=== PATIENT | male | born 1980 | race Caucasian/White ===

== ENCOUNTER 2017-09-04 13:13 | Emergency (ER) | payer MEDICAID ==
[~2017-09-04] VITALS: Ht 170.2 cm; Wt 92.5 kg
--- NOTE | 2017-09-04 13:35 | NUR ---
MSE DONE BY DR RICHARDS AT [facility] ROOM 04A. PATIENT A & O X4
[2017-09-04 13:45] VITALS: BP 115/72
--- NOTE | 2017-09-04 13:46 | NUR ---
Patient discharged to home in stable conditon. Written and verbal after care instructions given. Patient verbalizes understanding of instructions.
== END 2017-09-04 13:50 | disposition home or self-care (01) ==
LOC: ER 13:13
DX: J03.90 Acute tonsillitis, unspecified (principal)
CPT/HCPCS: A4663